=== PATIENT | male | born 1985 | race Hispanic/Latino ===

== ENCOUNTER 2023-04-22 12:54 | Inpatient (IN) | payer SELFPAY ==
[~2023-04-22 12:54] MED LIST: Iopamidol-370 76% 500 ML MDV (1 ML CHARGE) ONE
[2023-04-22] MEDS ORDERED: EPINEPHrine 1 MG/10 ML Abboject SYRINGE ONE (12:59)
[2023-04-22] MEDS ORDERED: Fentanyl CADD 100 ML IV SCH (13:15)
[2023-04-22 13:16] LABS: #Basophils 0.1 thou/uL (0.0-0.2); #Eosinphils 0.1 thou/uL (0.0-0.7); %Basophils 0.4 % (0.0-1.0); %Eosinophils 0.4 % (0.0-10.0); %Lymphocytes 29.5 % (21.0-51.0); %Monocytes 8.1 % (0.0-10.0); %Neutrophils 59.9 % (42.0-75.0); Hemoglobin 15.5 g/dL (14.0-18.0); Mean Corpuscular HGB CONC 33.7 g/dL (32.0-36.0); Mean Corpuscular Hemoglobin 32.2 pg (27.0-31.0); Mean Corpuscular Volume 95.6 fl (78.0-98.0); Mean Platelet Volume 10.7 fL (7.4-10.4); Platelet Count 177 10x3/uL (130-400); RBC Distribution Width 11.8 % (11.5-14.5); Red Blood Cell (RBC) Count 4.81 mill/uL (4.70-6.10); White Blood Cell (WBC) Count 11.8 10x3/uL (4.8-10.8)
[2023-04-22 13:27] LABS: Actual Bicarbonate (HCO3a) 17.4 mEq/L (22-28); Analyzer IN Cardio ER; CO2 Tension 43.8 mmHg (35.0-45.0); Calcium, Ionized (arterial) 1.13 mmol/L (1.12-1.30); Carboxyhemoglobin (COHb) 1.2 gm% (0.0-3.0); Hematocrit-ABG 42 % (42.0-52.0); Hemoglobin (Hb) 14.3 g/dL (14.0-18.0); Potassium - ABG Lab 3.63 mmol/L (3.70-5.30); pH, Arterial 7.217 (7.35-7.45)
[2023-04-22 13:28] LABS: Puncture Site RRA
[2023-04-22 13:43] LABS: Bacteria/HPF 1+ HPF (None Seen); Bilirubin Negative (Negative); Blood, Urine 2+ (Negative); CAUTI Indications for Culture Alt mental st,lethar; Clarity Turbid (Clear); Glucose, Urine (Dipstick) 100 mg/dL (Negative); Ketone, Urine Negative (Negative); Leukocyte Negative Leu/uL (Negative); Nitrite Negative (Negative); Protein, Urine (Dipstick) 300 mg/dL (Neg-Trace); RBC/HPF Greater than 50 HPF (0-3); Specific Gravity, Urine 1.013 (1.002-1.036); Squamous Epithelial None Seen HPF (0-3); Urobilinogen Normal mg/dL (Less than 2); WBC/HPF 0-3 HPF (0-3); pH, Urine 6.5 (5.0-9.0)
[2023-04-22 13:44] LABS: Urine Culture Reflex No No
[2023-04-22 13:48] LABS: Acetaminophen Less than 10 mcg/mL (10.0-30.0); Alcohol Less than 10.0 mg/dL (Less than 10); Salicylate Less than 8.0 mg/dL (15.0-30.0)
[2023-04-22 13:49] LABS: Amphetamine Not Detected (NotDetected); Barbiturates Screen Not Detected (NotDetected); Benzodiazepine Screen Not Detected (NotDetected); Cocaine Metabolite Screen Not Detected (NotDetected); Methadone Not Detected (NotDetected); Methamphetamine Not Detected (NotDetected); Opiate Screen Not Detected (NotDetected); Oxycodone Screen Not Detected (NotDetected); Phencyclidine (PCP) Not Detected (NotDetected); THC/Cannabinoid Screen Not Detected (NotDetected); Tricyclic Screen Not Detected (NotDetected)
[2023-04-22] MEDS ORDERED: Cefepime 2 GM VIAL ONE (14:06)
[2023-04-22] MEDS ORDERED: Sodium Chloride 0.9% 100 ML ONE (14:06)
[2023-04-22 14:30] LABS: ALT (SGPT) 420 U/L (8-55); AST (SGOT) 334 U/L (5-34); Albumin 2.9 g/dL (3.5-5.0); Alkaline Phosphatase 66 U/L (40-110); Anion Gap 12 mmol/L (10-20); BUN (Urea Nitrogen) 14 mg/dL (8.9-20.6); CK (CPK) 135 U/L (30-200); Calc. Creatinine Clearance 0 mL/min (70-130); Calcium 7.2 mg/dL (7.8-10.44); Carbon Dioxide 20 mmol/L (22-29); Chloride 106 mmol/L (98-107); Estimated GFR 74; Globulin 1.9 g/dL (2.4-3.5); Glucose 151 mg/dL (70-105); Potassium 4.3 mmol/L (3.5-5.1); Protein, Total 4.8 g/dL (6.0-8.3); Sodium 134 mmol/L (136-145)
[2023-04-22] MEDS ORDERED: Ventilator Sedation Protocol 1 EACH FS SCH (16:00)
[2023-04-22] MEDS ORDERED: Propofol BOLUS 1,000 MG/100 ML VIAL IV PRN (16:15)
[2023-04-22] MEDS ORDERED: DISCONTINUE PREVIOUS NARCOTIC PAIN MEDICATIONS AND BENZODIAZEPINES FS SCH (16:15)
[2023-04-22] MEDS ORDERED: Fentanyl BOLUS 250 ML IVPB PRN (16:15)
[2023-04-22] MEDS ORDERED: Morphine 2 MG/ML VIAL SLOW IVP PRN (16:15)
[2023-04-22 16:28] LABS: Lactic Acid 4.8 mmol/L (0.5-2.2)
[2023-04-22 16:34] LABS: Troponin I 1.284 ng/mL (< 0.028)
[2023-04-22] MEDS ORDERED: Lorazepam 1 MG TAB PO PRN (16:40)
[2023-04-22] MEDS ORDERED: Lorazepam 2 MG/ML VIAL IM PRN (16:40)
[2023-04-22] MEDS ORDERED: Lactated Ringer's 1,000 ML IV SCH (16:45)
[2023-04-22] MEDS ORDERED: Electrolyte Replacement Protocol 1 EACH FS SCH (16:45)
[2023-04-22] MEDS ORDERED: Dexmedetomidine In 0.9 % NaCl 100 ML IVPB SCH ×2 (16:45→23:45)
[2023-04-22] MEDS ORDERED: Piperacillin/Tazobactam 3.375 GM in Sodium Chloride 0.9% 100 ML IVPB SCH (17:15)
[2023-04-22] MEDS ORDERED: Vancomycin (BATCH) 1.75 GM in Premix 1 BAG IVPB SCH (17:15)
[2023-04-22] MEDS ORDERED: Electrolyte Replacement Protocol FS PRN (17:15)
[2023-04-22] MEDS: Lorazepam 2 MG/ML VIAL SLOW IVP PRN ×3 (17:23→22:54)
[2023-04-22] MEDS: Propofol 1,000 MG/100 ML VIAL IV PRN (17:23)
[2023-04-22] MEDS: Lorazepam 1 MG TAB PO SCH ×2 (17:29→22:45)
[2023-04-22] MEDS: Thiamine HCl 200 MG/2 ML VIAL SLOW IVP SCH (17:30)
[2023-04-22] MEDS: Sodium Chloride 0.9% 1,000 ML IV SCH (18:53)
[2023-04-22] MEDS ORDERED: Vancomycin 1 GM in Premix 1 BAG IVPB SCH ×2 (19:45→20:00)
[2023-04-22 20:59] LABS: Hemoglobin A1c 5.3 % (4.0-6.0)
[2023-04-22 21:00] LABS: Lactic Acid 3.8 mmol/L (0.5-2.2)
[2023-04-22 21:05] LABS: Troponin I 1.954 ng/mL (< 0.028)
[2023-04-22 21:12] LABS: Vitamin B12 1074 pg/mL (211-911)
[2023-04-22] MEDS: Piperacillin/Tazobactam 3.375 GM in Sodium Chloride 0.9% 100 ML IVPB SCH (22:17)
[2023-04-22 23:45] LABS: HBCM Index 0.09 S/CO (0-0.79); HBSAg Index 0.21 S/CO (0-0.99); HIV (1/2) Antibody/Antigen Non-Reactive (NonReactive); HIV 1/2 INDEX 0.25 S/CO (<1.00); Hep A IgM AB Non-Reactive S/CO (NonReactive); Hep A IgM S/CO 0.12 S/CO (0-0.79); Hep B Surf Ag Non-Reactive S/CO (NonReactive); Hep C IgG Ab Non-Reactive S/CO (NonReactive); Hep C Index 0.04 S/CO (0-0.79); Hepatitis B Core IgM Abs Non-Reactive S/CO (NonReactive)
[2023-04-23] MEDS: Dexmedetomidine 400 MCG, Admixture Fee 1 EACH in Sodium Chloride 0.9% 96 ML IVPB SCH ×2 (00:24→16:42)
[2023-04-23] MEDS: Fentanyl CADD 100 ML IV SCH ×2 (04:25→20:09)
[2023-04-23] MEDS: Propofol 1,000 MG/100 ML VIAL IV PRN ×2 (04:46→14:39)
[2023-04-23] MEDS: Sodium Chloride 0.9% 1,000 ML IV SCH ×2 (04:47→14:39)
[2023-04-23] MEDS: Lorazepam 1 MG TAB PO SCH ×4 (04:48→22:11)
[2023-04-23 05:14] VITALS: BMI 27.6
[2023-04-23 05:32] LABS: #Monocytes 0.6 thou/uL (0.11-0.59); #Neutrophils 4.7 thou/uL (1.40-6.50); %Basophils 0.2 % (0.0-1.0); %Eosinophils 0.6 % (0.0-10.0); %Lymphocytes 16.5 % (21.0-51.0); %Monocytes 8.7 % (0.0-10.0); %Neutrophils 73.7 % (42.0-75.0); Hematocrit 37.5 % (42.0-52.0); Hemoglobin 13.4 g/dL (14.0-18.0); Mean Corpuscular HGB CONC 35.7 g/dL (32.0-36.0); Mean Platelet Volume 10.8 fL (7.4-10.4); Platelet Count 117 10x3/uL (130-400); Red Blood Cell (RBC) Count 4.19 mill/uL (4.70-6.10); White Blood Cell (WBC) Count 6.4 10x3/uL (4.8-10.8)
[2023-04-23 06:06] LABS: Mean Corpuscular Volume 89.5 fl (78.0-98.0)
[2023-04-23 06:14] LABS: ALT (SGPT) 357 U/L (8-55); AST (SGOT) 205 U/L (5-34); Albumin 3.2 g/dL (3.5-5.0); Alkaline Phosphatase 72 U/L (40-110); Anion Gap 10 mmol/L (10-20); BUN (Urea Nitrogen) 14 mg/dL (8.9-20.6); Bilirubin, Total 3.1 mg/dL (0.2-1.2); Calc. Creatinine Clearance 77 mL/min (70-130); Carbon Dioxide 19 mmol/L (22-29); Chloride 109 mmol/L (98-107); Estimated GFR 65; Globulin 2.2 g/dL (2.4-3.5); Glucose 97 mg/dL (70-105); Potassium 3.4 mmol/L (3.5-5.1); Protein, Total 5.4 g/dL (6.0-8.3); Sodium 135 mmol/L (136-145)
[2023-04-23] MEDS: Piperacillin/Tazobactam 3.375 GM in Sodium Chloride 0.9% 100 ML IVPB SCH ×3 (06:31→22:11)
[2023-04-23] MEDS ORDERED: Vancomycin 1 GM in Premix 1 BAG IVPB SCH (08:00)
[2023-04-23 08:04] LABS: Actual Bicarbonate (HCO3a) 18.8 mEq/L (22-28); Base Excess (BEa) -1.8 mEq/L (-2.0 to +3.0); Calcium, Ionized (arterial) 1.12 mmol/L (1.12-1.30); Carboxyhemoglobin (COHb) 1.5 gm% (0.0-3.0); Hematocrit-ABG 39 % (42.0-52.0); Hemoglobin (Hb) 13.4 g/dL (14.0-18.0); O2 Tension (PaO2), arterial 94.5 mmHg (80.0-100.0); Potassium - ABG Lab 3.51 mmol/L (3.70-5.30); pH, Arterial 7.537 (7.35-7.45)
[2023-04-23 08:06] LABS: ALV-art Gradient 162.325 mmHg (0-20); CO2 Tension 22.7 mmHg (35.0-45.0); Puncture Site RRA
[2023-04-23] MEDS ORDERED: FLU VACC QS2023-24(6MOS UP)/PF 60 MCG/0.5 ML SYRINGE IM ONE (09:00)
[2023-04-23] MEDS: Multivit, Therapeutic 1 TAB PO SCH (09:00)
[2023-04-23] MEDS: Folic Acid 1 MG TAB PO SCH (09:01)
[2023-04-23] MEDS: Potassium Chloride 20 MEQ in Premix 1 BAG IVPB SCH ×2 (09:01→11:56)
[2023-04-23] MEDS: Pantoprazole 40 MG VIAL IVP SCH (09:01)
[2023-04-23 11:08] LABS: Syphilis Antibody Nonreactive (Nonreactive); Syphilis Antibody Index 0.04 S/CO (<1.00 Non-Reactive)
[2023-04-23] MEDS ORDERED: levETIRAcetam 500 MG/5 ML VIAL SLOW IVP SCH (11:15)
[2023-04-23] MEDS ORDERED: Electrolyte Replacement Protocol 1 EACH FS ONE (11:21)
[2023-04-23] MEDS ORDERED: Lorazepam 1 MG TAB PO PRN (16:41)
[2023-04-23] MEDS ORDERED: Lorazepam 2 MG/ML VIAL SLOW IVP PRN (17:40)
[2023-04-23] MEDS: Thiamine HCl 200 MG/2 ML VIAL SLOW IVP SCH (17:54)
[2023-04-23] MEDS: levETIRAcetam 500 MG/5 ML VIAL SLOW IVP SCH (22:18)
[2023-04-23] MEDS: Lorazepam 2 MG/ML VIAL SLOW IVP PRN (23:04)
[2023-04-24] MEDS: Propofol 1,000 MG/100 ML VIAL IV PRN ×5 (01:08→23:00)
[2023-04-24] MEDS: Dexmedetomidine 400 MCG, Admixture Fee 1 EACH in Sodium Chloride 0.9% 96 ML IVPB SCH ×3 (01:11→19:48)
[2023-04-24] MEDS: Sodium Chloride 0.9% 1,000 ML IV SCH ×2 (01:11→09:58)
[2023-04-24] MEDS: Lorazepam 1 MG TAB PO SCH ×2 (04:40→10:10)
[2023-04-24 05:11] LABS: #Eosinphils 0.1 thou/uL (0.0-0.7); #Monocytes 0.7 thou/uL (0.11-0.59); #Neutrophils 6.1 thou/uL (1.40-6.50); %Basophils 0.3 % (0.0-1.0); %Lymphocytes 11.5 % (21.0-51.0); %Monocytes 8.5 % (0.0-10.0); %Neutrophils 78.1 % (42.0-75.0); Hematocrit 39.9 % (42.0-52.0); Mean Corpuscular HGB CONC 35.1 g/dL (32.0-36.0); Mean Corpuscular Hemoglobin 31.9 pg (27.0-31.0); Mean Corpuscular Volume 90.9 fl (78.0-98.0); Mean Platelet Volume 10.7 fL (7.4-10.4); Platelet Count 106 10x3/uL (130-400); RBC Distribution Width 11.9 % (11.5-14.5); Red Blood Cell (RBC) Count 4.39 mill/uL (4.70-6.10); White Blood Cell (WBC) Count 7.8 10x3/uL (4.8-10.8)
[2023-04-24 05:34] LABS: ALT (SGPT) 240 U/L (8-55); AST (SGOT) 79 U/L (5-34); Albumin 3.2 g/dL (3.5-5.0); Alkaline Phosphatase 75 U/L (40-110); Anion Gap 12 mmol/L (10-20); BUN (Urea Nitrogen) 10 mg/dL (8.9-20.6); Bilirubin, Total 3.5 mg/dL (0.2-1.2); Calc. Creatinine Clearance 94 mL/min (70-130); Calcium 8.3 mg/dL (7.8-10.44); Carbon Dioxide 16 mmol/L (22-29); Chloride 110 mmol/L (98-107); Estimated GFR 82; Globulin 2.7 g/dL (2.4-3.5); Glucose 127 mg/dL (70-105); Potassium 3.4 mmol/L (3.5-5.1); Protein, Total 5.9 g/dL (6.0-8.3); Sodium 135 mmol/L (136-145)
[2023-04-24] MEDS: Piperacillin/Tazobactam 3.375 GM in Sodium Chloride 0.9% 100 ML IVPB SCH ×3 (05:38→21:25)
[2023-04-24 07:36] LABS: Actual Bicarbonate (HCO3a) 18.5 mEq/L (22-28); Base Excess (BEa) -4.8 mEq/L (-2.0 to +3.0); Calcium, Ionized (arterial) 1.17 mmol/L (1.12-1.30); Carboxyhemoglobin (COHb) 1.4 gm% (0.0-3.0); Hematocrit-ABG 41 % (42.0-52.0); Hemoglobin (Hb) 13.8 g/dL (14.0-18.0); O2 Tension (PaO2), arterial 110.2 mmHg (80.0-100.0); Potassium - ABG Lab 3.56 mmol/L (3.70-5.30); pH, Arterial 7.409 (7.35-7.45)
[2023-04-24 07:37] LABS: Puncture Site RRA
[2023-04-24 07:51] LABS: Vancomycin, Trough 5.1 ug/mL
[2023-04-24] MEDS: Potassium Chloride 20 MEQ in Premix 1 BAG IVPB SCH ×2 (08:23→09:57)
[2023-04-24] MEDS: Pantoprazole 40 MG VIAL IVP SCH (08:24)
[2023-04-24] MEDS: Folic Acid 1 MG TAB PO SCH (08:24)
[2023-04-24] MEDS: Multivit, Therapeutic 1 TAB PO SCH (08:24)
[2023-04-24] MEDS: levETIRAcetam 500 MG/5 ML VIAL SLOW IVP SCH ×2 (08:24→21:26)
[2023-04-24] MEDS: Fentanyl CADD 100 ML IV SCH (11:54)
[2023-04-24 14:22] LABS: Potassium 3.9 mmol/L (3.5-5.1)
[2023-04-24] MEDS: Lorazepam 0.5 MG TAB PO SCH ×2 (16:00→21:26)
[2023-04-24] MEDS: Acetaminophen 650 MG Suppository PR PRN (16:01)
[2023-04-24] MEDS: Thiamine HCl 200 MG/2 ML VIAL SLOW IVP SCH (16:01)
[2023-04-24] MEDS ORDERED: Lorazepam 1 MG TAB PO PRN (16:41)
[2023-04-25] MEDS: Dexmedetomidine 400 MCG, Admixture Fee 1 EACH in Sodium Chloride 0.9% 96 ML IVPB SCH ×3 (02:58→15:05)
[2023-04-25 03:44] LABS: #Eosinphils 0.1 thou/uL (0.0-0.7); #Monocytes 0.7 thou/uL (0.11-0.59); #Neutrophils 5.5 thou/uL (1.40-6.50); %Basophils 0.2 % (0.0-1.0); %Eosinophils 1.7 % (0.0-10.0); %Monocytes 8.6 % (0.0-10.0); %Neutrophils 68.1 % (42.0-75.0); Hematocrit 42.4 % (42.0-52.0); Hemoglobin 14.8 g/dL (14.0-18.0); Mean Corpuscular HGB CONC 34.9 g/dL (32.0-36.0); Mean Corpuscular Hemoglobin 31.8 pg (27.0-31.0); Mean Corpuscular Volume 91.2 fl (78.0-98.0); Mean Platelet Volume 10.9 fL (7.4-10.4); Platelet Count 128 10x3/uL (130-400); RBC Distribution Width 11.9 % (11.5-14.5); Red Blood Cell (RBC) Count 4.65 mill/uL (4.70-6.10); White Blood Cell (WBC) Count 8.1 10x3/uL (4.8-10.8)
[2023-04-25] MEDS: Lorazepam 0.5 MG TAB PO SCH ×2 (03:57→10:40)
[2023-04-25 04:06] LABS: Phosphorus 2.4 mg/dL (2.3-4.7)
[2023-04-25 04:12] LABS: ALT (SGPT) 172 U/L (8-55); AST (SGOT) 48 U/L (5-34); Albumin 3.3 g/dL (3.5-5.0); Alkaline Phosphatase 112 U/L (40-110); Anion Gap 15 mmol/L (10-20); BUN (Urea Nitrogen) 7 mg/dL (8.9-20.6); Bilirubin, Total 3.2 mg/dL (0.2-1.2); Calc. Creatinine Clearance 102 mL/min (70-130); Calcium 8.7 mg/dL (7.8-10.44); Carbon Dioxide 19 mmol/L (22-29); Chloride 105 mmol/L (98-107); Estimated GFR 91; Globulin 3.6 g/dL (2.4-3.5); Glucose 116 mg/dL (70-105); Protein, Total 6.9 g/dL (6.0-8.3); Sodium 135 mmol/L (136-145)
[2023-04-25] MEDS: Propofol 1,000 MG/100 ML VIAL IV PRN ×4 (06:33→21:33)
[2023-04-25] MEDS: Piperacillin/Tazobactam 3.375 GM in Sodium Chloride 0.9% 100 ML IVPB SCH ×3 (07:08→21:01)
[2023-04-25] MEDS: Fentanyl CADD 100 ML IV SCH (07:15)
[2023-04-25 07:33] LABS: Actual Bicarbonate (HCO3a) 22.4 mEq/L (22-28); Base Excess (BEa) -0.2 mEq/L (-2.0 to +3.0); CO2 Tension 30.8 mmHg (35.0-45.0); Calcium, Ionized (arterial) 1.12 mmol/L (1.12-1.30); Carboxyhemoglobin (COHb) 1.3 gm% (0.0-3.0); Hematocrit-ABG 40 % (42.0-52.0); Hemoglobin (Hb) 13.5 g/dL (14.0-18.0); O2 Tension (PaO2), arterial 100.1 mmHg (80.0-100.0)
[2023-04-25 07:47] LABS: Puncture Site RRA
[2023-04-25] MEDS: levETIRAcetam 500 MG/5 ML VIAL SLOW IVP SCH ×2 (08:38→21:00)
[2023-04-25] MEDS: Acetaminophen 650 MG Suppository PR PRN (08:39)
[2023-04-25] MEDS: Folic Acid 1 MG TAB PO SCH (08:39)
[2023-04-25] MEDS: Pantoprazole 40 MG VIAL IVP SCH (08:39)
[2023-04-25] MEDS: Multivit, Therapeutic 1 TAB PO SCH (08:39)
[2023-04-25] MEDS: Lorazepam 2 MG/ML VIAL SLOW IVP PRN ×3 (12:59→21:00)
[2023-04-25] MEDS: Thiamine 100 MG TAB PO SCH (16:23)
[2023-04-25] MEDS ORDERED: Lorazepam 0.5 MG TAB PO PRN (16:41)
[2023-04-26] MEDS: Lorazepam 2 MG/ML VIAL SLOW IVP PRN ×2 (00:18→03:39)
[2023-04-26] MEDS: Dexmedetomidine 400 MCG, Admixture Fee 1 EACH in Sodium Chloride 0.9% 96 ML IVPB SCH (02:10)
[2023-04-26] MEDS: Fentanyl CADD 100 ML IV SCH (02:10)
[2023-04-26] MEDS: Propofol 1,000 MG/100 ML VIAL IV PRN ×2 (03:38→08:39)
[2023-04-26 05:08] LABS: #Eosinphils 0.1 thou/uL (0.0-0.7); #Monocytes 0.5 thou/uL (0.11-0.59); %Basophils 0.4 % (0.0-1.0); %Eosinophils 1.9 % (0.0-10.0); %Lymphocytes 13.3 % (21.0-51.0); %Monocytes 8.7 % (0.0-10.0); %Neutrophils 75.1 % (42.0-75.0); Hematocrit 38.6 % (42.0-52.0); Hemoglobin 13.6 g/dL (14.0-18.0); Mean Corpuscular HGB CONC 35.2 g/dL (32.0-36.0); Mean Corpuscular Hemoglobin 31.6 pg (27.0-31.0); Mean Corpuscular Volume 89.6 fl (78.0-98.0); Mean Platelet Volume 10.5 fL (7.4-10.4); Platelet Count 141 10x3/uL (130-400); RBC Distribution Width 11.9 % (11.5-14.5); Red Blood Cell (RBC) Count 4.31 mill/uL (4.70-6.10); White Blood Cell (WBC) Count 5.3 10x3/uL (4.8-10.8)
[2023-04-26 05:38] LABS: ALT (SGPT) 103 U/L (8-55); AST (SGOT) 31 U/L (5-34); Albumin 3.1 g/dL (3.5-5.0); Alkaline Phosphatase 137 U/L (40-110); Anion Gap 14 mmol/L (10-20); BUN (Urea Nitrogen) 7 mg/dL (8.9-20.6); Bilirubin, Total 3.2 mg/dL (0.2-1.2); Calc. Creatinine Clearance 93 mL/min (70-130); Carbon Dioxide 22 mmol/L (22-29); Chloride 106 mmol/L (98-107); Estimated GFR 81; Globulin 3.5 g/dL (2.4-3.5); Glucose 117 mg/dL (70-105); Magnesium 1.8 mg/dL (1.6-2.6); Potassium 3.4 mmol/L (3.5-5.1); Protein, Total 6.6 g/dL (6.0-8.3); Sodium 139 mmol/L (136-145)
[2023-04-26] MEDS: Piperacillin/Tazobactam 3.375 GM in Sodium Chloride 0.9% 100 ML IVPB SCH ×3 (06:06→20:49)
[2023-04-26] MEDS ORDERED: Magnesium 2 GM/50 ML(in water) 2 GM in Premix 1 BAG IVPB SCH (08:00)
[2023-04-26 08:42] LABS: Actual Bicarbonate (HCO3a) 23.4 mEq/L (22-28); Base Excess (BEa) 0.2 mEq/L (-2.0 to +3.0); CO2 Tension 33.3 mmHg (35.0-45.0); Calcium, Ionized (arterial) 1.16 mmol/L (1.12-1.30); Carboxyhemoglobin (COHb) 0.9 gm% (0.0-3.0); Hematocrit-ABG 39 % (42.0-52.0); Hemoglobin (Hb) 13.2 g/dL (14.0-18.0); O2 Tension (PaO2), arterial 78.4 mmHg (80.0-100.0); Potassium - ABG Lab 3.39 mmol/L (3.70-5.30); pH, Arterial 7.464 (7.35-7.45)
[2023-04-26 08:45] LABS: Puncture Site RRA
[2023-04-26 08:47] LABS: ALV-art Gradient 165.175 mmHg (0-20)
[2023-04-26] MEDS: Pantoprazole 40 MG VIAL IVP SCH (08:50)
[2023-04-26] MEDS: Folic Acid 1 MG TAB PO SCH (08:50)
[2023-04-26] MEDS: Multivit, Therapeutic 1 TAB PO SCH (08:50)
[2023-04-26] MEDS: levETIRAcetam 500 MG/5 ML VIAL SLOW IVP SCH ×2 (08:50→20:25)
[2023-04-26] MEDS: Potassium Chloride 20 MEQ in Premix 1 BAG IVPB SCH ×2 (08:51→11:44)
[2023-04-26 08:56] LABS: Phosphorus 3.1 mg/dL (2.3-4.7)
[2023-04-26] MEDS ORDERED: DC Sedation Protocol FS ONE (11:20)
[2023-04-26] MEDS: Acetaminophen 325 MG TAB PO PRN (11:42)
[2023-04-26] MEDS: Ondansetron ODT 4 MG TAB PO PRN ×2 (11:43→20:19)
[2023-04-26] MEDS: Thiamine 100 MG TAB PO SCH (16:57)
[2023-04-26] MEDS ORDERED: Lorazepam 1 MG TAB PO PRN (20:17)
[2023-04-26] MEDS ORDERED: Lorazepam 2 MG/ML VIAL IM PRN (20:17)
[2023-04-26] MEDS: Calcium Carbonate 500 MG ChewTAB PO PRN (20:19)
[2023-04-26] MEDS ORDERED: Lorazepam 1 MG TAB PO SCH (20:30)
[2023-04-26] MEDS: Lorazepam 0.5 MG TAB PO PRN (20:49)
[2023-04-26] MEDS ORDERED: diphenhydrAMINE 50 MG/ML VIAL IVP SCH (22:15)
[2023-04-27] MEDS: Acetaminophen 325 MG TAB PO PRN ×2 (00:51→14:06)
[2023-04-27 04:45] LABS: #Eosinphils 0.1 thou/uL (0.0-0.7); #Monocytes 0.6 thou/uL (0.11-0.59); #Neutrophils 4.2 thou/uL (1.40-6.50); %Basophils 0.2 % (0.0-1.0); %Eosinophils 1.2 % (0.0-10.0); %Lymphocytes 13.6 % (21.0-51.0); %Monocytes 10.8 % (0.0-10.0); %Neutrophils 73.7 % (42.0-75.0); Hematocrit 38.7 % (42.0-52.0); Hemoglobin 13.4 g/dL (14.0-18.0); Mean Corpuscular HGB CONC 34.6 g/dL (32.0-36.0); Mean Corpuscular Hemoglobin 31.4 pg (27.0-31.0); Mean Corpuscular Volume 90.6 fl (78.0-98.0); Mean Platelet Volume 10.2 fL (7.4-10.4); Platelet Count 155 10x3/uL (130-400); RBC Distribution Width 11.6 % (11.5-14.5); Red Blood Cell (RBC) Count 4.27 mill/uL (4.70-6.10); White Blood Cell (WBC) Count 5.8 10x3/uL (4.8-10.8)
[2023-04-27 05:08] LABS: ALT (SGPT) 101 U/L (8-55); AST (SGOT) 42 U/L (5-34); Albumin 3.7 g/dL (3.5-5.0); Alkaline Phosphatase 148 U/L (40-110); Anion Gap 15 mmol/L (10-20); BUN (Urea Nitrogen) 8 mg/dL (8.9-20.6); Bilirubin, Total 3.5 mg/dL (0.2-1.2); Calc. Creatinine Clearance 113 mL/min (70-130); Calcium 9.8 mg/dL (7.8-10.44); Carbon Dioxide 25 mmol/L (22-29); Chloride 104 mmol/L (98-107); Estimated GFR 103; Globulin 3.8 g/dL (2.4-3.5); Glucose 131 mg/dL (70-105); Magnesium 2.3 mg/dL (1.6-2.6); Phosphorus 3.2 mg/dL (2.3-4.7); Potassium 3.6 mmol/L (3.5-5.1); Protein, Total 7.5 g/dL (6.0-8.3); Sodium 140 mmol/L (136-145)
[2023-04-27] MEDS: Ondansetron ODT 4 MG TAB PO PRN ×2 (05:43→14:50)
[2023-04-27] MEDS: Piperacillin/Tazobactam 3.375 GM in Sodium Chloride 0.9% 100 ML IVPB SCH ×3 (05:59→22:02)
[2023-04-27] MEDS ORDERED: Ketorolac Tromethamine 30 MG/ML VIAL IVP SCH (06:00)
[2023-04-27] MEDS: Multivit, Therapeutic 1 TAB PO SCH (08:35)
[2023-04-27] MEDS: Folic Acid 1 MG TAB PO SCH (08:35)
[2023-04-27] MEDS: levETIRAcetam 500 MG/5 ML VIAL SLOW IVP SCH ×2 (08:38→22:02)
[2023-04-27] MEDS: Pantoprazole 40 MG VIAL IVP SCH (08:39)
[2023-04-27] MEDS ORDERED: Lorazepam 1 MG TAB PO PRN (20:17)
[2023-04-27] MEDS: Lorazepam 0.5 MG TAB PO PRN (22:16)
[2023-04-27] MEDS: Calcium Carbonate 500 MG ChewTAB PO PRN (22:17)
[2023-04-28] MEDS: Piperacillin/Tazobactam 3.375 GM in Sodium Chloride 0.9% 100 ML IVPB SCH (05:10)
[2023-04-28] MEDS: Acetaminophen 325 MG TAB PO PRN (05:20)
[2023-04-28 06:39] LABS: #Eosinphils 0.1 thou/uL (0.0-0.7); #Monocytes 0.6 thou/uL (0.11-0.59); %Basophils 0.5 % (0.0-1.0); %Eosinophils 2.5 % (0.0-10.0); %Lymphocytes 15.4 % (21.0-51.0); %Monocytes 9.9 % (0.0-10.0); Hematocrit 41.5 % (42.0-52.0); Hemoglobin 14.6 g/dL (14.0-18.0); Mean Corpuscular HGB CONC 35.2 g/dL (32.0-36.0); Mean Corpuscular Hemoglobin 31.5 pg (27.0-31.0); Mean Corpuscular Volume 89.4 fl (78.0-98.0); Platelet Count 196 10x3/uL (130-400); RBC Distribution Width 11.4 % (11.5-14.5); Red Blood Cell (RBC) Count 4.64 mill/uL (4.70-6.10); White Blood Cell (WBC) Count 5.7 10x3/uL (4.8-10.8)
[2023-04-28 07:10] LABS: ALT (SGPT) 81 U/L (8-55); AST (SGOT) 33 U/L (5-34); Albumin 3.9 g/dL (3.5-5.0); Alkaline Phosphatase 131 U/L (40-110); Anion Gap 16 mmol/L (10-20); BUN (Urea Nitrogen) 11 mg/dL (8.9-20.6); Bilirubin, Total 1.9 mg/dL (0.2-1.2); Calc. Creatinine Clearance 110 mL/min (70-130); Calcium 10.1 mg/dL (7.8-10.44); Carbon Dioxide 24 mmol/L (22-29); Chloride 102 mmol/L (98-107); Estimated GFR 106; Glucose 115 mg/dL (70-105); Magnesium 1.9 mg/dL (1.6-2.6); Phosphorus 2.8 mg/dL (2.3-4.7); Potassium 3.6 mmol/L (3.5-5.1); Protein, Total 7.9 g/dL (6.0-8.3); Sodium 138 mmol/L (136-145)
[2023-04-28] MEDS ORDERED: Magnesium 2 GM/50 ML(in water) 2 GM in Premix 1 BAG IVPB SCH (08:00)
[2023-04-28] MEDS: Multivit, Therapeutic 1 TAB PO SCH (08:16)
[2023-04-28] MEDS: Folic Acid 1 MG TAB PO SCH (08:16)
[2023-04-28] MEDS: levETIRAcetam 500 MG/5 ML VIAL SLOW IVP SCH (08:16)
[2023-04-28 11:34] VITALS: BP 139/86; TEMP 98.1
[2023-04-28] MEDS ORDERED: Lorazepam 1 MG TAB PO PRN (20:17)
[2023-04-28] MEDS ORDERED: Lorazepam 0.5 MG TAB PO SCH (20:30)
[2023-04-29] MEDS ORDERED: Thiamine 100 MG TAB PO SCH (20:30)
== END 2023-04-28 12:54 | disposition home or self-care (01) | DRG 208 ==
LOC: SUATTDRO 12:54 → ERS 12:54 → EDBD 12:54 → CCU 15:57 → T4-B 04-27 10:50
PROVIDERS: ADMIT Internal Medicine; ATTEND Hospitalist
PROC: 5A1945Z Respiratory Ventilation, 24-96 Consecutive Hours (ICD-10-PCS; 2023-04-22)
PROC: 0BH17EZ Insertion of Endotracheal Airway into Trachea, Via Natural or Artificial Opening (ICD-10-PCS; 2023-04-22)
PROC: 3E033XZ Introduction of Vasopressor into Peripheral Vein, Percutaneous Approach (ICD-10-PCS; 2023-04-22)
PROC: 4A133R1 Monitoring of Arterial Saturation, Peripheral, Percutaneous Approach (ICD-10-PCS; 2023-04-22)
PROC: 4A10X4Z Monitoring of Central Nervous Electrical Activity, External Approach (ICD-10-PCS; principal; 2023-04-23)
DX: J96.01 Acute respiratory failure with hypoxia (principal); J69.0 Pneumonitis due to inhalation of food and vomit; I21.A1 Myocardial infarction type 2; F10.139 Alcohol abuse with withdrawal, unspecified; E87.20 Acidosis, unspecified; N17.9 Acute kidney failure, unspecified; E87.6 Hypokalemia; G40.909 Epilepsy, unspecified, not intractable, without status epilepticus; E80.6 Other disorders of bilirubin metabolism; R13.10 Dysphagia, unspecified; R73.9 Hyperglycemia, unspecified; Z90.49 Acquired absence of other specified parts of digestive tract; Z71.41 Alcohol abuse counseling and surveillance of alcoholic; Z79.899 Other long term (current) drug therapy
CPT/HCPCS: 31500; 36415; 36416; 36600; 51702; 70450; 71045; 71275; 76705; 80053; 80074; 80202; 80306; 80307; 81001; 82140; 82607; 82805; 83036; 83605; 83735; 84100; 84146; 84443; 84484; 85025; 86644; 86780; 87070; 87081; 87205; 87389; 87633; 90471; 90686; 93005; 93306; 94002; 94003; 95711; 95819; 96365; 99292; C9113; G0008; J0171; J0692; J1200; J1650; J1885; J1953; J2060; J2543; J2704; J3010; J3370; J3370-JW; J3411; J3475; J3480; J3490; J7050; J7120; Q0162; Q9967